=== PATIENT | male | born 1965 | race African-American/Black ===

== ENCOUNTER 2019-12-25 16:08 | Emergency (ER) | payer SELFPAY ==
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
[2019-12-25] MEDS ORDERED: MORPHINE 4 MG/1 ML INJ IV ONE (17:07)
[2019-12-25] MEDS ORDERED: ONDANSETRON 4 MG/2 ML INJ IV ONE (17:07)
[2019-12-25] MEDS ORDERED: SODIUM CHLORIDE 0.9% 1000 ML 1,000 ML IV ONE (17:07)
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
[2019-12-25] MEDS: ACETAMINOPHEN 325 MG TAB PO ONE ×2 (17:39→19:33)
[2019-12-25 17:41] LABS: Hematocrit 46.8 % (35.5-45.6); Mean Corpuscular HGB Conc 34 % (32-34); Mean Corpuscular Volume 87 fl (84-94); Platelet Count 243 K/mm3 (140-440); Red Blood Count 5.36 M/mm3 (3.65-5.03); Red Cell Distribution Width 13.5 % (13.2-15.2)
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
[2019-12-25 17:59] LABS: Alanine Aminotransferase 13 units/L (7-56); Albumin 3.8 g/dL (3.9-5); BUN/Creatinine Ratio 17; Blood Urea Nitrogen 15 mg/dL (9-20); Hemolysis Index 37; INR 1.01 (0.87-1.13)
[2019-12-25] MEDS ORDERED: HYDROmorphone 1 MG/1 ML INJ IV ONE ×3 (18:28→20:15)
[2019-12-25 18:48] LABS: Bilirubin,Urine NEG (Negative); Blood,Urine SM (Negative); Color,Urine Straw (Yellow); Protein,Urine <15 mg/dL mg/dL (Negative); Urobilinogen,Urine < 2.0 mg/dL (<2.0)
[2019-12-25] MEDS ORDERED: LISINOPRIL 10 MG TAB PO ONE (20:15)
[2019-12-25] MEDS ORDERED: METOPROLOL TARTRATE 50 MG TAB PO ONE (20:15)
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
[2019-12-25 21:13] VITALS: BP 218/118
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
[2019-12-25] MEDS ORDERED: KETOROLAC 30 MG/1 ML INJ IV ONE (23:01)
== END 2019-12-26 00:01 | disposition home or self-care (01) ==
LOC: ED 16:08
DX: R07.89 Other chest pain (principal); M54.2 Cervicalgia; M54.6 Pain in thoracic spine; M54.5 Low back pain; I10 Essential (primary) hypertension; Z76.0 Encounter for issue of repeat prescription; I25.2 Old myocardial infarction; Z79.899 Other long term (current) drug therapy; V49.49XA Driver injured in collision with other motor vehicles in traffic accident, initial encounter; Y93.89 Activity, other specified; Y92.488 Other paved roadways as the place of occurrence of the external cause; Y99.8 Other external cause status
CPT/HCPCS: 36415; 70450; 71045; 71275; 72125; 72128; 72131; 72170; 74177; 80053; 81001; 82550; 83690; 83735; 84484; 85027; 85610; 85730; 93005; 96361; 96374; 96375; 96376; 99285; J1170; J1885; J2270; J2405; J7030; Q9967